=== PATIENT | male | born 1995 | race Caucasian/White ===

== ENCOUNTER 2020-02-07 13:41 | Inpatient (IN) | payer OTHER ==
--- OUTSIDE RECORDS SUMMARY | 2020-02-07 13:51 | XMS ---
:1995 Author Organization [facility] Support Name Relationship Address Phone UE Unavailable Unavailable Unavailable JEISON VAZQUEZ MOTHER [address] [place] [address] Re-disclosure Warning The records that you are about to access may contain information from federally- assisted alcohol or drug abuse programs. If such information is present, then the following federally mandated warning applies: This information has been disclosed to you from records protected by federal confidentiality rules (42 CFR part 2). The federal rules prohibit you from making any further disclosure of this information unless further disclosure is expressly permitted by the written consent of the person to whom it pertains or as otherwise permitted by 42 CFR part 2. A general authorization for the release of medical or other information is NOT sufficient for this purpose. The Federal rules restrict any use of the information to criminally investigate or prosecute any alcohol or drug abuse patient.The records that you are about to access may contain highly sensitive health information, the redisclosure of which is protected by Article 27-F of the [facility] Public Health law. If you continue you may haveaccess to information: Regarding HIV / AIDS; Provided by facilities licensed or operated by the [facility] Office of Mental Health; or Provided by the [facility] Office for People With Developmental Disabilities. If such information is present, then the following [facility] mandated warning applies: This information has been disclosed to you from confidential records which are protected by state law. State law prohibits you from making any further disclosure of this information without the specific written consent of the person to whom it pertains, or as otherwise permitted by law. Any unauthorized further disclosure in violation of state law may result in a fine or group home sentence or both. A general authorization for the release of medical or other information is NOT sufficient authorization for further disclosure. Insurance Providers Payer name Policy type Policy ID Covered Covered alliance party's Policy P jonathan / Coverage alliance party ID relationship to Jaquez Inf ormation type jaquez HEALTH [id number] SP [id number] FIRST
--- NOTE | 2020-02-07 14:25 | BHS.RME ---
2019 N Coronavirus Screen - COVID-19 Screening Questions Dx of COVID-19 or had a positive test in the last 4 weeks?: No Contact with known/suspected COVID patient in last 14 days?: No Any of these symptoms or contact with someone who has?: None Traveled domestically/internationally in the last 14 days?: No Screen score: 0 Screen result: Further Evaluation Substance Use & Tx History - Substance Use History Alcohol Substance amount: 2 tall boys Frequency of use: Daily Substance route: Oral Date of Last Use: 02/06/20 (started age 16) Cocaine- Powder Substance amount: $100 Frequency of use: Daily Substance route: Inhalation (ex: sniffing or snorting) Date of Last Use: 02/06/20 (started age 20) Marijuana/Hashish Substance amount: $20 Frequency of use: Daily Substance route: Smoking Date of Last Use: 02/06/20 Nicotine Substance amount: 3-4 ciggs Frequency of use: Daily Substance route: Smoking Date of Last Use: 02/07/20 (started age 20) Physical/Psych/Mental Status - Behavior General Behavior: Increased activity (restlessness, agitation) Eye Contact: Normal - Cooperativeness Cooperativeness: Cooperative - Thinking Thought Processes: Tight, Logical, Goal Directed - Physical Health Problems Is patient presently having any pain?: No Does patient presently have any injuries (include location): No Does patient currently have a fever: No Is patient : No CIWA Nausea/Vomitin-Int. Nausea w/Dry Heave Muscle Tremors: 1-None Visible, but [place] Anxiety: 0-No Anxiety, at Ease Agitation: 0-Normal Activity Paroxysmal Sweats: No Perspiration Orientation: 0-Oriented Tacttile Disturbances: 0-None Auditory Disturbances: 0-None Visual Disturbances: 0-None Headache: 0-None Present CIWA-Ar Total Score: 5
[2020-02-07 15:20] VITALS: BMI 26.3
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
[2020-02-07] MEDS ORDERED: IBUPROFEN 400 MG TABLET (FP) PO PRN (17:26)
[2020-02-07] MEDS ORDERED: MAG HYDROX/AL HYDROX/SIMETH 30 ML UNIT-DOSE CUP PO PRN (17:26)
[2020-02-07] MEDS ORDERED: MAGNESIUM HYDROX 2400MG/30ML ORAL SUSPENSION 30 ML CUP PO PRN (17:26)
[2020-02-07] MEDS ORDERED: NICOTINE POLACRILEX 2 MG GUM BC PRN (17:26)
[2020-02-07] MEDS ORDERED: P-EPHED 60MG/TRIPROLIDI 2.5MG TABLET PO PRN (17:26)
[2020-02-07] MEDS ORDERED: MAGNESIUM CITRATE 300 ML BOTTLE PO PRN (17:26)
[2020-02-07] MEDS ORDERED: LOPERAMIDE HCL 2 MG CAPSULE PO PRN (17:26)
[2020-02-07] MEDS ORDERED: ACETAMINOPHEN 325 MG TABLET (FP) PO PRN (17:26)
[2020-02-07] MEDS ORDERED: guaiFENesin 200 MG/10 ML 10 ML UNIT-DOSE CUPS PO PRN (17:26)
[2020-02-07] MEDS ORDERED: ALBUTEROL SO4 HFA INHALER IH PRN (17:57)
--- OUTSIDE RECORDS SUMMARY | 2020-02-07 18:02 | XMS ---
:1995 Author Organization [facility] Support Name Relationship Address Phone UE Unavailable Unavailable Unavailable JEISON VAZQUEZ MOTHER [phone] [place] [address] Re-disclosure Warning The records that you are [...] is protected by Article 27-F of the [facility] Public Health law. If you continue you may haveaccess to information: Regarding HIV / AIDS; Provided by facilities licensed or operated by the [facility] Office of Mental Health; or Provided by the [facility] Office for People With Developmental Disabilities. If such information is present, then the following [facility] mandated warning applies: This information has [...] law may result in a fine or care home sentence or both. A general authorization for the release of medical or other information is NOT sufficient authorization for further disclosure. Insurance Providers Payer name Policy type Policy ID Covered Covered libertarian's Policy P jonathan / Coverage libertarian ID relationship to Jaquez Inf ormation type jaquez HEALTH [id number] SP [id number] FIRST
[2020-02-07] MEDS: CEPHALEXIN MONOHYDRATE 500 MG CAPSULE (UD) PO SCH (20:16)
[2020-02-07] MEDS: hydrOXYzine PAMOATE 25 MG CAPSULE (FP) PO SCH ×2 (20:18→22:23)
[2020-02-07] MEDS ORDERED: MELATONIN 5 MG TABLETS PO SCH (22:00)
[2020-02-07] MEDS: THIAMINE HCL 100 MG TABLET (FP) PO SCH (22:23)
[2020-02-08] MEDS: CEPHALEXIN MONOHYDRATE 500 MG CAPSULE (UD) PO SCH ×4 (00:49→17:54)
[2020-02-08] MEDS: hydrOXYzine PAMOATE 25 MG CAPSULE (FP) PO SCH ×5 (06:54→21:31)
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
--- NOTE | 2020-02-08 08:07 | PN ---
Teaching Attending Note Name of Resident: Martina Anand ATTENDING PHYSICIAN STATEMENT I saw and evaluated the patient. I reviewed the resident's note and discussed the case with the resident. I agree with the resident's findings and plan as documented. SUBJECTIVE: OBJECTIVE: ASSESSMENT AND PLAN: Agree with resident's findings and plan for detox.
--- NOTE | 2020-02-08 09:09 | EKG ---
Test Reason : Blood Pressure : / mmHG Vent. Rate : 059 BPM Atrial Rate : 059 BPM P-R Int : 176 ms QRS Dur : 096 ms QT Int : 412 ms P-R-T Axes : 033 064 061 degrees QTc Int : 407 ms SINUS BRADYCARDIA WITH SINUS ARRHYTHMIA OTHERWISE NORMAL ECG NO PREVIOUS ECGS AVAILABLE Confirmed by MD ANKUSH, JUAN MIGUEL ([id number]) on 02/08/2020 9:08:48 AM Referred By: Confirmed By:JUAN MIGUEL LECHUGA MD
[2020-02-08] MEDS ORDERED: BACITRACIN 15 GM TUBE TOPICAL OINTMENT TP SCH (10:00)
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
[2020-02-08 10:54] LABS: HEMATOCRIT 41.8 % (35.4-49); HEMOGLOBIN 13.6 GM/dL (11.7-16.9); MCH 25.8 pg (25.7-33.7); MCHC 32.6 g/dl (32.0-35.9); MEAN CELL VOLUME 79.3 fl (80-96); MEAN PLT VOLUME 9.4 fl (7.5-11.1); PLATELET COUNT 207 K/MM3 (134-434); RBC 5.28 M/mm3 (4.00-5.60); RDW 15.6 % (11.9-15.9); WHITE BLOOD COUNT 4.9 K/mm3 (4.0-10.0)
[2020-02-08] MEDS: BACITRACIN 15 GM TUBE TOPICAL OINTMENT TP SCH (11:06)
[2020-02-08] MEDS: NICOTINE 14 MG/24 HOURS TOPICAL PATCH TD SCH (11:08)
[2020-02-08] MEDS: PRENATAL VITAMINS W/ FOLIC ACID TABLET (FP) PO SCH (11:08)
[2020-02-08 11:20] LABS: POTASSIUM 4.6 mmol/L (3.5-5.1)
[2020-02-08 11:22] LABS: CALCIUM 9.2 mg/dL (8.5-10.1)
[2020-02-08 11:23] LABS: ALBUMIN 3.4 g/dl (3.4-5.0); BLOOD UREA NITROGEN 11.2 mg/dL (7-18)
[2020-02-08 11:26] LABS: CREATININE 0.8 mg/dL (0.55-1.3)
[2020-02-08 11:28] LABS: BILIRUBIN,TOTAL 0.6 mg/dL (0.2-1); TOT PROT 6.4 g/dl (6.4-8.2)
[2020-02-08 13:39] LABS: SICKLE CELL SCREEN NEGATIVE (NEGATIVE)
--- NOTE | 2020-02-08 17:46 | PN ---
Progress Note (short form) - Note Progress Note: Discussed With Pt. his own insulin regimen at home. Pt. states he takes 50 units Basaglar at night and then he calculates his AC Insulin dose based on how much carbs he is taking in. Pt. states that before his dinner tonight he would have calculated around 30 units of Lispro as he did have 2 dinners with 4 pudding cups. Will order long-acting Insulin for basal coverage and add insulin sliding scale. Would recommend increasing basal coverage while inpatient to cover Pt.'s aberrant eating habits despite being on diabetic diet. Adjustment to basal insulin should be made after a 24 hour record of BGMs to better estimate how much to increase. Added on BGMs ACHS to assess glucose level. Pt.s sitting up eating, relaxed in no acute distress. Pt. without difficulty ambulating.
[2020-02-08 17:54] LABS: URINE APPEARANCE CLEAR; URINE BILIRUBIN NEGATIVE (NEGATIVE); URINE COLOR YELLOW; URINE GLUCOSE (UA) 3+ (NEGATIVE); URINE KETONE NEGATIVE (NEGATIVE); URINE LEUK ESTERASE NEGATIVE (NEGATIVE); URINE NITRITE NEGATIVE (NEGATIVE); URINE PROTEIN NEGATIVE (NEGATIVE); URINE UROBILINOGEN 0.2 mg/dL (0.2-1.0)
[2020-02-08] MEDS: INSULIN SLIDING SCALE (NOVOLOG) 1 VIAL SQ SCH (21:29)
[2020-02-08] MEDS: INSULIN (LEVEMIR) 100 UNITS/ML UNITS SQ SCH (21:30)
[2020-02-08] MEDS: THIAMINE HCL 100 MG TABLET (FP) PO SCH (21:31)
[2020-02-08] MEDS: MELATONIN 5 MG TABLETS PO PRN (21:31)
[2020-02-08] MEDS ORDERED: INSULIN (LEVEMIR) 100 UNITS/ML UNITS SQ ONE (22:14)
[2020-02-09] MEDS: CEPHALEXIN MONOHYDRATE 500 MG CAPSULE (UD) PO SCH ×4 (01:00→17:28)
[2020-02-09] MEDS: hydrOXYzine PAMOATE 25 MG CAPSULE (FP) PO SCH ×5 (06:13→21:24)
[2020-02-09] MEDS: INSULIN SLIDING SCALE (NOVOLOG) 1 VIAL SQ SCH ×4 (07:44→21:22)
--- NOTE | 2020-02-09 08:24 | PN ---
Teaching Attending Note Name of Resident: Joselito Castillo ATTENDING PHYSICIAN STATEMENT I saw and evaluated the patient. I reviewed the resident's note and discussed the case with the resident. I agree with the resident's findings and plan as documented. SUBJECTIVE: OBJECTIVE: ASSESSMENT AND PLAN: Agree with patient's assessment of diabetic management and basal and immediate insulin coverage. Dr. Livingston
[2020-02-09] MEDS: PRENATAL VITAMINS W/ FOLIC ACID TABLET (FP) PO SCH (10:00)
[2020-02-09] MEDS: NICOTINE 14 MG/24 HOURS TOPICAL PATCH TD SCH (10:00)
[2020-02-09 10:31] LABS: POTASSIUM 4.4 mmol/L (3.5-5.1)
[2020-02-09 10:34] LABS: BLOOD UREA NITROGEN 13.7 mg/dL (7-18)
[2020-02-09 10:37] LABS: CREATININE 0.9 mg/dL (0.55-1.3)
[2020-02-09 10:39] LABS: CALCIUM 9.3 mg/dL (8.5-10.1)
[2020-02-09] MEDS: BACITRACIN 15 GM TUBE TOPICAL OINTMENT TP SCH (10:46)
[2020-02-09] MEDS ORDERED: INSULIN (NOVOLOG) ASPART 100 UNITS/ML 10ML VIAL ONE ×2 (12:13→16:36)
[2020-02-09] MEDS: INSULIN (LEVEMIR) 100 UNITS/ML UNITS SQ SCH (21:20)
[2020-02-09] MEDS: MELATONIN 5 MG TABLETS PO PRN (21:24)
[2020-02-09] MEDS: THIAMINE HCL 100 MG TABLET (FP) PO SCH (21:24)
[2020-02-09] MEDS: BACITRACIN 0.9 GM PACKET TP SCH (21:25)
[2020-02-09] MEDS ORDERED: INSULIN (LEVEMIR) 100 UNITS/ML UNITS SQ ONE (22:50)
[2020-02-10] MEDS: CEPHALEXIN MONOHYDRATE 500 MG CAPSULE (UD) PO SCH ×4 (00:24→17:12)
[2020-02-10] MEDS: hydrOXYzine PAMOATE 25 MG CAPSULE (FP) PO SCH ×5 (06:24→21:29)
[2020-02-10] MEDS: INSULIN SLIDING SCALE (NOVOLOG) 1 VIAL SQ SCH ×4 (07:45→21:25)
[2020-02-10] MEDS: NICOTINE 14 MG/24 HOURS TOPICAL PATCH TD SCH (09:54)
[2020-02-10] MEDS: PRENATAL VITAMINS W/ FOLIC ACID TABLET (FP) PO SCH (09:54)
[2020-02-10] MEDS: BACITRACIN 0.9 GM PACKET TP SCH ×2 (09:54→21:28)
[2020-02-10] MEDS ORDERED: INSULIN (NOVOLOG) ASPART 100 UNITS/ML 10ML VIAL ONE (12:16)
--- NOTE | 2020-02-10 14:07 | PN ---
Progress Note (short form) - Note Progress Note: Reviewed Pt.s Glucose trajectory over the last 2 days. Will decrease HS Levemir to 45 to prevent morning low glucose episodes.
[2020-02-10] MEDS: INSULIN (LEVEMIR) 100 UNITS/ML UNITS SQ SCH (21:25)
[2020-02-10] MEDS: THIAMINE HCL 100 MG TABLET (FP) PO SCH (21:29)
[2020-02-10] MEDS: MELATONIN 5 MG TABLETS PO PRN (21:29)
[2020-02-11] MEDS: CEPHALEXIN MONOHYDRATE 500 MG CAPSULE (UD) PO SCH ×4 (06:41→19:00)
[2020-02-11] MEDS: hydrOXYzine PAMOATE 25 MG CAPSULE (FP) PO SCH ×6 (06:43→22:11)
[2020-02-11] MEDS: INSULIN SLIDING SCALE (NOVOLOG) 1 VIAL SQ SCH ×4 (06:47→22:17)
[2020-02-11] MEDS: BACITRACIN 0.9 GM PACKET TP SCH ×2 (09:45→22:10)
[2020-02-11] MEDS: PRENATAL VITAMINS W/ FOLIC ACID TABLET (FP) PO SCH (09:45)
[2020-02-11] MEDS: NICOTINE 14 MG/24 HOURS TOPICAL PATCH TD SCH (09:46)
[2020-02-11] MEDS ORDERED: INSULIN (NOVOLOG) ASPART 100 UNITS/ML 10ML VIAL ONE ×2 (17:20→22:15)
[2020-02-11] MEDS: THIAMINE HCL 100 MG TABLET (FP) PO SCH (22:11)
[2020-02-11] MEDS: INSULIN (LEVEMIR) 100 UNITS/ML UNITS SQ SCH (22:12)
[2020-02-11] MEDS: MELATONIN 5 MG TABLETS PO PRN (22:17)
[2020-02-12] MEDS: CEPHALEXIN MONOHYDRATE 500 MG CAPSULE (UD) PO SCH ×3 (00:43→11:49)
[2020-02-12] MEDS: hydrOXYzine PAMOATE 25 MG CAPSULE (FP) PO SCH ×2 (06:21→10:04)
[2020-02-12] MEDS: INSULIN SLIDING SCALE (NOVOLOG) 1 VIAL SQ SCH ×2 (06:22→11:50)
[2020-02-12 06:32] VITALS: BP 116/68; PULSE 61; TEMP 97.7
[2020-02-12] MEDS: BACITRACIN 0.9 GM PACKET TP SCH (10:03)
[2020-02-12] MEDS: PRENATAL VITAMINS W/ FOLIC ACID TABLET (FP) PO SCH (10:04)
[2020-02-12] MEDS: NICOTINE 14 MG/24 HOURS TOPICAL PATCH TD SCH (10:04)
[2020-02-12] MEDS ORDERED: INSULIN (NOVOLOG) ASPART 100 UNITS/ML 10ML VIAL ONE (11:46)
--- NOTE | 2020-02-12 13:06 | PN ---
[facility] Progress Note Note: patient would like to go home,stated feeling much better,has safe place to stay,has personal issue to be taken care off,sen by counselor, stable for discharge today,follow up with [facility] counseling treatment IOP as arrangement and follow up with pCP DR Silva and [employer] DR Ruth, has all medications
--- NOTE | 2020-02-12 13:07 | DS ---
[facility] Rehab Discharge Summary - [facility] Rehab Discharge Summary Admission Date: 02/07/20 Discharge Date: 02/12/20 - History Present History: Alcohol dependence, Cannabis dependence, Cocaine dependence Pertinent Past History: asthma cellulitis of right leg type 1 dm depression nicotine dependence - Discharge Physical Exam Vital Signs: Vital Signs Temperature 97.7 F 02/12/20 06:12 Pulse Rate 61 02/12/20 06:12 Respiratory Rate 18 02/12/20 06:12 Blood Pressure 116/68 02/12/20 06:12 O2 Sat by Pulse Oximetry (%) 98 02/12/20 06:12 Pertinent Admission Physical Exam Findings: t97.7 p85 r17 bp 106/65 pulse ox 97.7% - Treatment Discharge Condition: Discharge condition good, Rehabilitated safely, Responded well, Outpatient referral accepted - Medication Discharge Medications: Ambulatory Orders Insulin Glargine,Hum.rec.anlog [Basaglar Kwikpen U-100] 50 unit SQ HS 02/08/20 Insulin Lispro [Admelog Solostar] 100 unit SQ AC 02/08/20 - Medication-Assisted Treatment (MAT) Medication-Assisted Treatment (MAT): No - Discharge Instructions Diet, activity, other medical instructions: Diet: no concentrated sweet Activity: as tolerated Other medical instructions: - Diagnosis (1) Alcohol dependence Status: Acute (2) Cannabis dependence Status: Acute (3) Cellulitis of right leg Status: Acute (4) Cocaine dependence Status: Acute (5) Substance induced mood disorder Status: Acute (6) Substance-induced anxiety disorder Status: Acute (7) Substance-induced sleep disorder Status: Acute (8) Anxiety Status: Chronic (9) Asthma Status: Chronic Qualifiers: Asthma severity: unspecified severity Asthma persistence: unspecified Asthma complication type: unspecified Qualified Code(s): J45.909 - Unspecified asthma, uncomplicated (10) Depression Status: Chronic Qualifiers: Depression Type: unspecified Qualified Code(s): F32.9 - Major depressive disorder, single episode, unspecified (11) Nicotine dependence Status: Chronic (12) Type 1 diabetes mellitus Status: Chronic Qualifiers: Diabetes mellitus complication status: with other specified complication Qualified Code(s): E10.69 - Type 1 diabetes mellitus with other specified complication - Follow-up Referral Minutes to complete discharge: 45 - AMA Did Patient Leave Against Medical Advice: No Additional Comments: alert,oriented x 3 ambulation on the unit lung clear on auscultation bilaterally no abdominal pain no edema of legs,cellulitis of right leg subsided,no swelling,no erythema,no pain,no tenderness stable for discharge today, follow up with [facility] Counseling Treatment IOP as arrangement follow up with dr Silva and Dr. Ruth as arrangement patient has medications with him total time of discharge 45 minutes
--- NOTE | 2020-02-14 09:20 | PN ---
Teaching Attending Note Name of Resident: Joselito Castillo ATTENDING PHYSICIAN STATEMENT I saw and evaluated the patient. I reviewed the resident's note and discussed the case with the resident. I agree with the resident's findings and plan as documented. SUBJECTIVE: OBJECTIVE: ASSESSMENT AND PLAN: Agree with resident's findings and plan for treatment on 02/10/20 progress note.
== END 2020-02-12 12:55 | disposition home or self-care (01) | DRG 772 ==
LOC: YASAS 13:41 → Y5N 17:55
PROVIDERS: ADMIT Allergy & Immunology; ATTEND Allergy & Immunology
PROC: HZ42ZZZ Group Counseling for Substance Abuse Treatment, Cognitive-Behavioral (ICD-10-PCS; principal; 2020-02-07)
DX: F10.20 Alcohol dependence, uncomplicated (principal); F14.20 Cocaine dependence, uncomplicated; F12.20 Cannabis dependence, uncomplicated; F17.210 Nicotine dependence, cigarettes, uncomplicated; F19.282 Other psychoactive substance dependence with psychoactive substance-induced sleep disorder; F19.280 Other psychoactive substance dependence with psychoactive substance-induced anxiety disorder; F19.24 Other psychoactive substance dependence with psychoactive substance-induced mood disorder; F32.9 Major depressive disorder, single episode, unspecified; F41.9 Anxiety disorder, unspecified; L03.115 Cellulitis of right lower limb; E10.69 Type 1 diabetes mellitus with other specified complication; Z79.4 Long term (current) use of insulin; G47.00 Insomnia, unspecified; J45.909 Unspecified asthma, uncomplicated
CPT/HCPCS: 36415; 80048; 80053; 81003; 82962; 85027; 85660; 86780; 93005; 93010; C9803; U0003

== ENCOUNTER 2020-03-11 09:49 | Inpatient (IN) | payer OTHER ==
[2020-03-11 11:04] VITALS: BMI 22.8
[2020-03-11] MEDS ORDERED: ONDANSETRON *ODT* 4 MG TABLET SL PRN (11:40)
[2020-03-11] MEDS ORDERED: MAGNESIUM HYDROX 2400MG/30ML ORAL SUSPENSION 30 ML CUP PO PRN (11:40)
[2020-03-11] MEDS ORDERED: MENTHOL/PHENOL 1 EACH UD MM PRN (11:40)
[2020-03-11] MEDS ORDERED: chlordiazePOXIDE HCL 25 MG CAPSULE PO PRN (11:40)
[2020-03-11] MEDS ORDERED: ACETAMINOPHEN 325 MG TABLET (FP) PO PRN ×2 (11:40)
[2020-03-11] MEDS ORDERED: BISMUTH SUBSALICYLATE 524 MG/30 ML UD PO PRN (11:40)
[2020-03-11] MEDS ORDERED: NICOTINE POLACRILEX 2 MG GUM BUC PRN (11:40)
[2020-03-11] MEDS ORDERED: MAG HYDROX/AL HYDROX/SIMETH 30 ML UNIT-DOSE CUP PO PRN (11:40)
[2020-03-11] MEDS ORDERED: METHOCARBAMOL 500 MG TABLET PO PRN (11:40)
[2020-03-11] MEDS ORDERED: MAGNESIUM CITRATE 300 ML BOTTLE PO PRN (11:40)
[2020-03-11] MEDS ORDERED: IBUPROFEN 400 MG TABLET (FP) PO PRN (11:40)
[2020-03-11] MEDS: hydrOXYzine PAMOATE 25 MG CAPSULE (FP) PO SCH ×3 (13:33→22:23)
[2020-03-11] MEDS: NICOTINE 14 MG/24 HOURS TOPICAL PATCH TD SCH (13:33)
[2020-03-11] MEDS: chlordiazePOXIDE HCL 25 MG CAPSULE PO SCH ×2 (17:11→22:19)
[2020-03-11] MEDS: INSULIN SLIDING SCALE (NOVOLOG) 1 VIAL SQ SCH ×2 (17:12→22:22)
[2020-03-11] MEDS ORDERED: INSULIN SLIDING SCALE (NOVOLOG) 1 VIAL SQ ONE ×2 (17:43→22:51)
[2020-03-11] MEDS ORDERED: ALBUTEROL SO4 HFA INHALER IH PRN (19:04)
[2020-03-11] MEDS ORDERED: MELATONIN 5 MG TABLETS PO SCH (22:00)
[2020-03-11] MEDS ORDERED: THIAMINE HCL 100 MG TABLET (FP) PO SCH (22:00)
[2020-03-11] MEDS ORDERED: INSULIN (LEVEMIR) 100 UNITS/ML UNITS SQ SCH (22:00)
[2020-03-11] MEDS ORDERED: INSULIN (LEVEMIR) 100 UNITS/ML UNITS SQ ONE (22:52)
[2020-03-12] MEDS: chlordiazePOXIDE HCL 25 MG CAPSULE PO SCH ×3 (06:43→18:40)
[2020-03-12] MEDS: hydrOXYzine PAMOATE 25 MG CAPSULE (FP) PO SCH ×4 (06:44→18:41)
[2020-03-12] MEDS: INSULIN SLIDING SCALE (NOVOLOG) 1 VIAL SQ SCH ×3 (06:55→18:39)
[2020-03-12] MEDS ORDERED: PRENATAL VITAMINS W/ FOLIC ACID TABLET (FP) PO SCH (10:00)
[2020-03-12] MEDS: NICOTINE 14 MG/24 HOURS TOPICAL PATCH TD SCH (10:33)
[2020-03-12 10:38] LABS: HEMATOCRIT 45.7 % (35.4-49); HEMOGLOBIN 15.4 GM/dL (11.7-16.9); MCH 26.4 pg (25.7-33.7); MCHC 33.7 g/dl (32.0-35.9); MEAN CELL VOLUME 78.3 fl (80-96); MEAN PLT VOLUME 10.2 fl (7.5-11.1); PLATELET COUNT 174 K/MM3 (134-434); RBC 5.83 M/mm3 (4.00-5.60); RDW 14.3 % (11.9-15.9); WHITE BLOOD COUNT 4.8 K/mm3 (4.0-10.0)
[2020-03-12 10:47] LABS: POTASSIUM 3.9 mmol/L (3.5-5.1)
[2020-03-12 10:50] LABS: BLOOD UREA NITROGEN 11.8 mg/dL (7-18); CALCIUM 8.7 mg/dL (8.5-10.1)
[2020-03-12 10:51] LABS: ALBUMIN 3.8 g/dl (3.4-5.0)
[2020-03-12 10:54] LABS: BILIRUBIN,TOTAL 0.7 mg/dL (0.2-1); TOT PROT 7.1 g/dl (6.4-8.2)
[2020-03-12 13:13] VITALS: BP 109/67; PULSE 108; TEMP 97.1
[2020-03-13] MEDS ORDERED: chlordiazePOXIDE HCL 25 MG CAPSULE PO SCH (05:00)
[2020-03-14] MEDS ORDERED: chlordiazePOXIDE HCL 10 MG CAPSULE PO PRN
[2020-03-14] MEDS ORDERED: chlordiazePOXIDE HCL 10 MG CAPSULE PO SCH (05:00)
[2020-03-15] MEDS ORDERED: chlordiazePOXIDE HCL 10 MG CAPSULE PO SCH (05:00)
[2020-03-16] MEDS ORDERED: chlordiazePOXIDE HCL 10 MG CAPSULE PO ONE (05:00)
== END 2020-03-12 17:00 | disposition left against medical advice (07) | DRG 770 ==
LOC: YASAS 09:49 → Y3N 12:13
PROVIDERS: ADMIT Allergy & Immunology; ATTEND Allergy & Immunology
PROC: HZ2ZZZZ Detoxification Services for Substance Abuse Treatment (ICD-10-PCS; principal; 2020-03-11)
DX: F10.230 Alcohol dependence with withdrawal, uncomplicated (principal); F14.20 Cocaine dependence, uncomplicated; F12.20 Cannabis dependence, uncomplicated; F16.10 Hallucinogen abuse, uncomplicated; F17.213 Nicotine dependence, cigarettes, with withdrawal; F19.24 Other psychoactive substance dependence with psychoactive substance-induced mood disorder; J45.20 Mild intermittent asthma, uncomplicated; E10.65 Type 1 diabetes mellitus with hyperglycemia; Z91.013 Allergy to seafood; Z79.4 Long term (current) use of insulin; Z56.0 Unemployment, unspecified; Z59.0 Homelessness
CPT/HCPCS: 36415; 80053; 82962; 85027; 86780; C9803; U0003

== ENCOUNTER 2020-03-23 18:23 | Inpatient (IN) | payer OTHER ==
[2020-03-23 19:34] VITALS: BMI 24.9
[2020-03-23] MEDS ORDERED: ALBUTEROL SO4 HFA INHALER IH PRN (21:21)
[2020-03-23] MEDS ORDERED: MAGNESIUM CITRATE 300 ML BOTTLE PO PRN (21:26)
[2020-03-23] MEDS ORDERED: guaiFENesin 200 MG/10 ML 10 ML UNIT-DOSE CUPS PO PRN (21:26)
[2020-03-23] MEDS ORDERED: MAGNESIUM HYDROX 2400MG/30ML ORAL SUSPENSION 30 ML CUP PO PRN (21:26)
[2020-03-23] MEDS ORDERED: LOPERAMIDE HCL 2 MG CAPSULE PO PRN (21:26)
[2020-03-23] MEDS ORDERED: MAG HYDROX/AL HYDROX/SIMETH 30 ML UNIT-DOSE CUP PO PRN (21:26)
[2020-03-23] MEDS ORDERED: NICOTINE POLACRILEX 2 MG GUM BUC PRN (21:26)
[2020-03-23] MEDS ORDERED: MENTHOL/PHENOL 1 EACH UD MM PRN (21:26)
[2020-03-23] MEDS ORDERED: IBUPROFEN 400 MG TABLET (FP) PO PRN (21:26)
[2020-03-23] MEDS ORDERED: ACETAMINOPHEN 325 MG TABLET (FP) PO PRN (21:26)
[2020-03-23] MEDS ORDERED: P-EPHED 60MG/TRIPROLIDI 2.5MG TABLET PO PRN (21:26)
[2020-03-23] MEDS: MELATONIN 5 MG TABLETS PO SCH (22:56)
[2020-03-23] MEDS: THIAMINE HCL 100 MG TABLET (FP) PO SCH (22:56)
[2020-03-23] MEDS ORDERED: INSULIN (LEVEMIR) 100 UNITS/ML UNITS SQ ONE (23:00)
[2020-03-23] MEDS: INSULIN (LEVEMIR) 100 UNITS/ML UNITS SQ SCH (23:01)
[2020-03-23] MEDS ORDERED: INSULIN (NOVOLOG) ASPART 100 UNITS/ML 10ML VIAL SQ ONE (23:36)
[2020-03-24] MEDS: INSULIN SLIDING SCALE (NOVOLOG) 1 VIAL SQ SCH ×3 (06:56→17:07)
[2020-03-24] MEDS: NICOTINE 14 MG/24 HOURS TOPICAL PATCH TD SCH (10:25)
[2020-03-24] MEDS: hydrOXYzine PAMOATE 25 MG CAPSULE (FP) PO PRN ×3 (10:25→19:08)
[2020-03-24] MEDS: PRENATAL VITAMINS W/ FOLIC ACID TABLET (FP) PO SCH (10:25)
[2020-03-24 11:56] LABS: POTASSIUM 3.9 mmol/L (3.5-5.1)
[2020-03-24 12:04] LABS: CALCIUM 9.2 mg/dL (8.5-10.1)
[2020-03-24 12:05] LABS: ALBUMIN 3.5 g/dl (3.4-5.0); BLOOD UREA NITROGEN 17.8 mg/dL (7-18)
[2020-03-24 12:09] LABS: TOT PROT 6.7 g/dl (6.4-8.2)
[2020-03-24] MEDS ORDERED: INSULIN (NOVOLOG) ASPART 100 UNITS/ML 10ML VIAL ONE (17:05)
[2020-03-24] MEDS: MELATONIN 5 MG TABLETS PO SCH (21:23)
[2020-03-24] MEDS: INSULIN (LEVEMIR) 100 UNITS/ML UNITS SQ SCH (21:24)
[2020-03-24] MEDS: THIAMINE HCL 100 MG TABLET (FP) PO SCH (21:24)
[2020-03-25] MEDS: INSULIN SLIDING SCALE (NOVOLOG) 1 VIAL SQ SCH ×3 (06:56→16:57)
[2020-03-25 07:17] VITALS: TEMP 97.3
[2020-03-25] MEDS: hydrOXYzine PAMOATE 25 MG CAPSULE (FP) PO PRN ×2 (10:07→17:37)
[2020-03-25] MEDS: PRENATAL VITAMINS W/ FOLIC ACID TABLET (FP) PO SCH (10:07)
[2020-03-25] MEDS: NICOTINE 14 MG/24 HOURS TOPICAL PATCH TD SCH (10:07)
[2020-03-25] MEDS ORDERED: INSULIN (NOVOLOG) ASPART 100 UNITS/ML 10ML VIAL ONE ×2 (12:09→16:53)
[2020-03-25] MEDS: MELATONIN 5 MG TABLETS PO SCH (21:38)
[2020-03-25] MEDS: INSULIN (LEVEMIR) 100 UNITS/ML UNITS SQ SCH (21:39)
[2020-03-25] MEDS: THIAMINE HCL 100 MG TABLET (FP) PO SCH (21:39)
[2020-03-26] MEDS: INSULIN SLIDING SCALE (NOVOLOG) 1 VIAL SQ SCH ×3 (06:37→18:16)
[2020-03-26 07:16] VITALS: BP 137/69; PULSE 76
[2020-03-26] MEDS: PRENATAL VITAMINS W/ FOLIC ACID TABLET (FP) PO SCH (10:00)
[2020-03-26] MEDS: hydrOXYzine PAMOATE 25 MG CAPSULE (FP) PO PRN ×2 (10:00→13:14)
[2020-03-26] MEDS: NICOTINE 14 MG/24 HOURS TOPICAL PATCH TD SCH (10:01)
[2020-03-26] MEDS ORDERED: INSULIN (NOVOLOG) ASPART 100 UNITS/ML 10ML VIAL ONE (11:59)
== END 2020-03-26 17:00 | DRG 772 ==
LOC: YASAS 18:23 → Y3W 21:09
PROVIDERS: ADMIT Allergy & Immunology; ATTEND Allergy & Immunology
PROC: HZ42ZZZ Group Counseling for Substance Abuse Treatment, Cognitive-Behavioral (ICD-10-PCS; principal; 2020-03-23)
DX: F10.20 Alcohol dependence, uncomplicated (principal); F14.20 Cocaine dependence, uncomplicated; F15.20 Other stimulant dependence, uncomplicated; F12.20 Cannabis dependence, uncomplicated; F17.210 Nicotine dependence, cigarettes, uncomplicated; F30.9 Manic episode, unspecified; F19.24 Other psychoactive substance dependence with psychoactive substance-induced mood disorder; F19.282 Other psychoactive substance dependence with psychoactive substance-induced sleep disorder; E11.9 Type 2 diabetes mellitus without complications; G47.00 Insomnia, unspecified; L21.9 Seborrheic dermatitis, unspecified; L90.5 Scar conditions and fibrosis of skin; Z79.4 Long term (current) use of insulin; Z59.0 Homelessness
CPT/HCPCS: 36415; 80053; 82962; C9803; U0003